=== PATIENT | female | born 1980 | race Caucasian/White ===

== ENCOUNTER 2019-01-22 13:32 | Day surgery (SDC) | payer OTHER ==
[2019-01-17 15:23] LABS: BASOPHILS # (AUTO) 0.1 X10'3 (0-0.2); EOSINOPHILS # (AUTO) 0.3 X10'3 (0-0.9); EOSINOPHILS % (AUTO) 3.9 % (0-6); LYMPHOCYTES # (AUTO) 2.3 X10'3 (1.1-4.8); LYMPHOCYTES % (AUTO) 27.3 % (21-51); MEAN CORPUSCULAR HEMOGLOBIN 27.5 PG (27.0-31.0); MEAN CORPUSCULAR HGB CONC 32.8 g/dL (33.0-36.5); MEAN CORPUSCULAR VOLUME 83.7 FL (78-98); MEAN PLATELET VOLUME 6.8 FL (7.4-10.4); MONOCYTES # (AUTO) 0.6 X10'3 (0-0.9); MONOCYTES % (AUTO) 6.9 % (2-12); NEUTROPHILS # (AUTO) 5.1 X10'3 (1.8-7.7); NEUTROPHILS % (AUTO) 60.9 % (42-75); PRE OP HEMATOCRIT 42.5 % (35.0-45.0); PRE OP PLATELET COUNT 287 X10'3 (140-440); RED BLOOD COUNT 5.08 X10'6 (4.20-5.60); RED CELL DISTRIBUTION WIDTH 15.1 % (11.5-14.5)
[2019-01-17 15:45] LABS: HCG SERUM QL NEGATIVE
[2019-01-17 15:58] LABS: ALBUMIN 3.4 G/DL (3.4-5.0); ALBUMIN/GLOBULIN RATIO 0.8 (1.1-1.5); ALKALINE PHOSPHATASE 85 IU/L (46-116); BLOOD UREA NITROGEN 11 MG/DL (7-18); BUN/CREATININE RATIO 12.2 (6.6-38.0); CALCIUM 8.5 MG/DL (8.5-10.1); CHLORIDE 108 MMOL/L (99-107); PRE OP ALT 29 U/L (30-65); PRE OP ANION GAP 9 (8-16); PRE OP AST 9 U/L (10-37); PRE OP BILIRUB, TOTAL 0.4 MG/DL (0.0-1.0); PRE OP GLUCOSE 97 MG/DL (70-104); PRE OP POTASSIUM 4.2 MMOL/L (3.4-5.1); PRE OP SODIUM 143 MMOL/L (135-145); TOTAL CARBON DIOXIDE 26.2 MMOL/L (24-32); TOTAL PROTEIN 7.8 G/DL (6.4-8.2); eGFR 69 ML/MIN
[~2019-01-22] VITALS: Ht 167.6 cm; Wt 194.5 kg
[~2019-01-22 13:32] MED LIST: ACET-2119 PO; BUSP15TA3 PO; ESCI20TA38 PO; TELM80TA9 PO; TRAZ-251 PO
[2019-01-22 13:45] VITALS: BP 187/105
--- NOTE | 2019-01-22 13:45 | NUR ---
PT ARRIVED WITH A BP OF 187/105. AT 1415 PT GIVEN TELMISARTAN, BP 160/97. AT 1515 BP 155/88
[2019-01-22] MEDS ORDERED: Cefazolin 2GM/100ML NS IVPB 100 ML IV ONE (14:00)
[2019-01-22] MEDS ORDERED: famotidine 20mg tablet PO ONE (14:00)
[2019-01-22] MEDS ORDERED: ceFAZolin 1GM/D5W- ADD-VANTAGE 50 ML IV ONE (14:00)
[2019-01-22] MEDS ORDERED: [UNRECOGNIZED DRUG - REMARK] IV NR (14:00)
[2019-01-22] MEDS ORDERED: ringers solution, lacted 1,000 ML IV SCH ×2 (14:00→19:21)
[2019-01-22] MEDS ORDERED: AMLO10TA13 PO (14:17)
[2019-01-22] MEDS ORDERED: TELMISARTAN 80MG PO SCH (14:28)
[2019-01-22] MEDS ORDERED: ceFAZolin 1000mg inj ONE (17:23)
[2019-01-22] MEDS ORDERED: BUPIVAcaine/PF 2.5 mg/ml (0.25%) 30ml vial ONE (17:23)
[2019-01-22] MEDS ORDERED: morphine 4 MG/ML inj SYRINge IV PRN ×2 (19:25)
[2019-01-22] MEDS ORDERED: hydrALAZINE 20mg/ml inj. IV PRN (19:25)
[2019-01-22] MEDS ORDERED: ondansetron/PF 4mg/2ml inj IV PRN (19:25)
[2019-01-22] MEDS ORDERED: ketorolac trometh. 30mg/ml inj. ONE (19:25)
[2019-01-22] MEDS ORDERED: flumazenil 0.1 mg/ml inj. IV ONE (19:25)
[2019-01-22] MEDS ORDERED: labetalol 20mg/4ml (5mg/ml) syringe IV PRN (19:25)
[2019-01-22] MEDS ORDERED: fentaNYL/PF 50MCG/1 ML 2ML syringe IV PRN ×2 (19:25)
[2019-01-22] MEDS ORDERED: MIDAZolam 1mg/ml 10ml vial IV ONE (19:26)
[2019-01-22] MEDS ORDERED: fentaNYL/PF 50MCG/1 ML 2ML syringe IV ONE (19:27)
[2019-01-22 20:20] VITALS: BP 128/74
--- NOTE | 2019-01-22 20:20 | NUR ---
Received from OR via [facility], accompanied by Anesthesiologist DR. ANDREWS and report given by Anesthesiolgist. PT ARRIVED ALERT AND AWAKE. DEINES PAIN. DRESSING TO RT HAND CDI. PULSES AND PRODUCTION LINE SOLDERER WNL. MOVES ALL EXT WITH GOOD CSM. ICE PACK TO RT HAND
[2019-01-22 20:30] VITALS: BP 140/75
[2019-01-22 20:40] VITALS: BP 133/62
--- NOTE | 2019-01-22 20:55 | NUR ---
PT DC READY. AT BEDSIDE. IV DC'D. DC INSTR READ TO PT AND , VERBALIZED UNDERSTANDING AND WRITTEN COPY SENT WITH PT. ASSISTED PT TO DRESS. DC VIA WC TO POV FOR HOME
== END 2019-01-22 21:00 | disposition home or self-care (01) ==
LOC: PAS 13:32
PROVIDERS: ATTEND Orthopaedic Surgery
DX: G56.01 Carpal tunnel syndrome, right upper limb (principal); I10 Essential (primary) hypertension; F32.9 Major depressive disorder, single episode, unspecified; F41.9 Anxiety disorder, unspecified; G43.909 Migraine, unspecified, not intractable, without status migrainosus; E66.01 Morbid (severe) obesity due to excess calories; Z68.44 Body mass index [BMI] 60.0-69.9, adult; Z90.49 Acquired absence of other specified parts of digestive tract; Z98.890 Other specified postprocedural states; Z87.891 Personal history of nicotine dependence; Z79.899 Other long term (current) drug therapy
CPT/HCPCS: 36415; 64721; 80053; 82948; 84703; 85025; 93005; J0690; J3490; A4215; A6449; A7000; J1885; J2250; J3010; J7120

== ENCOUNTER 2019-03-05 05:52 | Day surgery (SDC) | payer OTHER ==
[~2019-03-05] VITALS: Ht 167.6 cm; Wt 178.7 kg
[~2019-03-05 05:52] MED LIST changes: +AMLO10TA13 PO; +ceFAZolin 1GM/D5W- ADD-VANTAGE 50 ML IV ONE; +cefazolin/dext.iso 2gm/50ml 50 ML IV ONE; +famotidine 20mg tablet PO ONE; +ringers solution, lacted 1,000 ML IV SCH
[2019-03-05 06:00] VITALS: BP 170/74
[2019-03-05] MEDS ORDERED: LIDOcaine 1% (10mg/ml) 2ml vial ONE (06:17)
[2019-03-05 07:21] LABS: BASOPHILS # (AUTO) 0.1 X10'3 (0-0.2); BASOPHILS % (AUTO) 0.8 % (0-1); EOSINOPHILS # (AUTO) 0.4 X10'3 (0-0.9); EOSINOPHILS % (AUTO) 5.4 % (0-6); LYMPHOCYTES # (AUTO) 1.7 X10'3 (1.1-4.8); LYMPHOCYTES % (AUTO) 22.2 % (21-51); MEAN CORPUSCULAR HEMOGLOBIN 28.1 PG (27.0-31.0); MEAN CORPUSCULAR HGB CONC 33.4 g/dL (33.0-36.5); MEAN PLATELET VOLUME 7.5 FL (7.4-10.4); MONOCYTES # (AUTO) 0.7 X10'3 (0-0.9); MONOCYTES % (AUTO) 8.8 % (2-12); NEUTROPHILS # (AUTO) 4.8 X10'3 (1.8-7.7); NEUTROPHILS % (AUTO) 62.8 % (42-75); PRE OP HEMATOCRIT 42.1 % (35.0-45.0); PRE OP HEMOGLOBIN 14.1 g/dL (12.0-16.0); PRE OP PLATELET COUNT 273 X10'3 (140-440); RED BLOOD COUNT 5.01 X10'6 (4.20-5.60); RED CELL DISTRIBUTION WIDTH 15.8 % (11.5-14.5)
[2019-03-05] MEDS ORDERED: BUPIVAcaine/PF 2.5mg/ml (0.25%) 10ml vial ONE (07:37)
[2019-03-05] MEDS ORDERED: ceFAZolin 1000mg inj ONE (07:37)
[2019-03-05 08:11] LABS: ALANINE AMINOTRANSFERASE 29 U/L (12-78); ALBUMIN 3.4 G/DL (3.4-5.0); ALBUMIN/GLOBULIN RATIO 0.8 (1.1-1.5); ALKALINE PHOSPHATASE 84 IU/L (46-116); ANION GAP 8 (8-16); ASPARTATE AMINO TRANSFERASE 16 U/L (10-37); BILIRUBIN,TOTAL 0.4 MG/DL (0.1-1.0); BLOOD UREA NITROGEN 15 MG/DL (7-18); BUN/CREATININE RATIO 18.1 (6.6-38.0); CALCIUM 8.4 MG/DL (8.5-10.1); CHLORIDE 107 MMOL/L (99-107); CREATININE 0.83 MG/DL (0.40-0.90); GLUCOSE 111 MG/DL (70-104); POTASSIUM 4.1 MMOL/L (3.5-5.1); SODIUM 141 MMOL/L (135-145); TOTAL CARBON DIOXIDE 26.3 MMOL/L (24-32); TOTAL PROTEIN 7.7 G/DL (6.4-8.2); eGFR 76 ML/MIN
[2019-03-05] MEDS ORDERED: LIDOcaine 0.5% (5mg/ml) 50ml vial ONE (10:12)
[2019-03-05] MEDS ORDERED: MIDAZolam 5mg/5ml vial ONE (10:13)
[2019-03-05] MEDS ORDERED: fentaNYL/PF 50MCG/1 ML 2ML syringe ONE (10:13)
[2019-03-05 10:45] VITALS: BP 135/75
--- NOTE | 2019-03-05 10:45 | NUR ---
ADMITTED TO PACU FROM OR ACCOMPANIED BY ANESTHESIA. INTIAL PHYSICAL ASSESSMENT DONE AND RECORDED. REPORT RECEIVED FROM ANESTHESIA.
[2019-03-05 10:55] VITALS: BP 140/50
[2019-03-05 11:05] VITALS: BP 128/75
[2019-03-05 11:15] VITALS: BP 130/66
--- NOTE | 2019-03-05 11:15 | NUR ---
DISCHARGE CRITERIA MET, DISCHARGE INSTRUCTIONS GIVEN, DEMONSTRATES VERBAL UNDERSTANDING. DISCHARGED HOME IN GOOD CONDITION.
== END 2019-03-05 11:15 | disposition home or self-care (01) ==
LOC: PAS 05:52
PROVIDERS: ATTEND Orthopaedic Surgery
DX: G56.02 Carpal tunnel syndrome, left upper limb (principal); I10 Essential (primary) hypertension; E66.01 Morbid (severe) obesity due to excess calories; Z68.44 Body mass index [BMI] 60.0-69.9, adult; Z87.891 Personal history of nicotine dependence; F41.9 Anxiety disorder, unspecified; F32.9 Major depressive disorder, single episode, unspecified; G43.909 Migraine, unspecified, not intractable, without status migrainosus; Z79.899 Other long term (current) drug therapy
CPT/HCPCS: 36415; 64721; 80053; 85025; J0690; J2001; J2250; J3010; J3490; A4215; A6449; J7120